=== PATIENT | female | born 1980 | race Caucasian/White ===

== ENCOUNTER 2021-02-06 10:02 | Outpatient (REF) | payer OTHER, SELFPAY ==
[2021-02-06 15:31] LABS: CT PCR NOT DETECTED (Not Detect.); NG PCR NOT DETECTED (Not Detect.)
[2021-02-07 08:04] LABS: HBc Num1 0.21 S/CO (0.00-0.79); HIV AB/AG Nonreactive (Nonreactive); HIV Num 1 0.08 S/CO (0.00-0.99); Hepatitis B Core Antibody Nonreactive (Nonreactive)
[2021-02-07 08:28] LABS: ~HepC Num1 0.23 S/CO (0.00-0.79); ~Hepatitis C Antibody Nonreactive (Nonreactive)
[2021-02-07 08:44] LABS: BV Int Neg Control Negative (Negative); BV Int Pos Control Positive (Positive)
[2021-02-07 08:45] LABS: Syphilis Screen Nonreactive (Nonreactive)
== END 2021-02-06 10:03 | disposition home or self-care (01) ==
LOC: HO.LAB 10:02
PROVIDERS: PCP Internal Medicine; Visit Provider Advanced Practice Midwife
DX: Z01.419 Encounter for gynecological examination (general) (routine) without abnormal findings (principal); N89.8 Other specified noninflammatory disorders of vagina; Z20.2 Contact with and (suspected) exposure to infections with a predominantly sexual mode of transmission
CPT/HCPCS: 36415; 86704; 86780; 86803; 87389; 87480; 87491; 87510; 87591; 87660

== ENCOUNTER 2021-02-26 11:44 | Outpatient (REF) | payer OTHER, SELFPAY ==
[2021-02-27 10:46] LABS: BV Int Neg Control Negative (Negative); BV Int Pos Control Positive (Positive)
== END 2021-02-26 11:45 | disposition home or self-care (01) ==
LOC: HO.LNP 11:44
PROVIDERS: PCP Internal Medicine; Visit Provider Advanced Practice Midwife
DX: N89.8 Other specified noninflammatory disorders of vagina (principal)
CPT/HCPCS: 87480; 87510; 87660; 99212

== ENCOUNTER 2021-03-21 14:38 | Outpatient (REF) | payer OTHER, SELFPAY ==
--- NOTE | ~2021-03-21 | MM_ITS ---
EXAMINATION: MM SCREENING DIGITAL BREAST TOMOSYNTHESIS, BILATERAL CLINICAL INFORMATION: Screening. Asymptomatic. The lifetime risk of breast cancer based on the Tyrer-Cuzick Model is 7.7%. COMPARISON: Mammography: None TECHNIQUE: Digital breast tomosynthesis is performed in both the craniocaudal and mediolateral oblique views along with computer-aided detection (CAD). Synthesized 2D images are generated from the tomosynthesis. Bilateral exaggerated craniocaudal views performed. FINDINGS: The breasts are heterogeneously dense, which may obscure small masses (ACR BI-RADS breast composition Category c). There are no significant masses, abnormal calcifications, or other abnormalities. MM/MM tomosynthesis screening BI IMPRESSION: No specific mammographic evidence to suggest malignancy. ASSESSMENT: BI-RADS 1: Negative RECOMMENDATION: Routine annual mammography screening. This patient's information was entered into a reminder system with a target due date for their next mammogram.
== END 2021-03-21 14:39 | disposition home or self-care (01) ==
LOC: HO.MAMMO 14:38
PROVIDERS: Visit Provider Advanced Practice Midwife
DX: Z12.31 Encounter for screening mammogram for malignant neoplasm of breast (principal)
CPT/HCPCS: 77063; 77067

== ENCOUNTER 2021-03-26 08:21 | Outpatient (REF) | payer OTHER, SELFPAY ==
[2021-03-27 09:42] LABS: BV Int Neg Control Negative (Negative); BV Int Pos Control Positive (Positive)
== END 2021-03-26 08:22 | disposition home or self-care (01) ==
LOC: HO.LAB 08:21
PROVIDERS: PCP Internal Medicine; Visit Provider Advanced Practice Midwife
DX: Z12.4 Encounter for screening for malignant neoplasm of cervix (principal); N89.8 Other specified noninflammatory disorders of vagina; N88.0 Leukoplakia of cervix uteri
CPT/HCPCS: 81003; 87480; 87510; 87660; 99212

== ENCOUNTER 2021-05-11 13:44 | Outpatient (REF) | payer OTHER, SELFPAY ==
[2021-05-12 11:45] LABS: CT PCR NOT DETECTED (Not Detect.); NG PCR NOT DETECTED (Not Detect.)
[2021-05-12 13:37] LABS: BV Int Neg Control Negative (Negative); BV Int Pos Control Positive (Positive)
== END 2021-05-11 13:45 | disposition home or self-care (01) ==
LOC: HO.LAB 13:44
PROVIDERS: PCP Internal Medicine; Visit Provider Advanced Practice Midwife
DX: Z30.46 Encounter for surveillance of implantable subdermal contraceptive (principal); N89.8 Other specified noninflammatory disorders of vagina; A64 Unspecified sexually transmitted disease; Z20.2 Contact with and (suspected) exposure to infections with a predominantly sexual mode of transmission; Z86.19 Personal history of other infectious and parasitic diseases
CPT/HCPCS: 87480; 87491; 87510; 87591; 87660; 99212

== ENCOUNTER → 2021-06-25 14:04 | Outpatient (BNVA) | payer OTHER, SELFPAY | PROVIDERS: PCP Internal Medicine; Visit Provider Advanced Practice Midwife | DX: Z30.46 Encounter for surveillance of implantable subdermal contraceptive (principal) | CPT/HCPCS: 11982 ==

== ENCOUNTER → 2022-02-08 10:33 | Outpatient (BNVA) | payer OTHER, SELFPAY | PROVIDERS: PCP Internal Medicine; Visit Provider Advanced Practice Midwife | DX: N92.6 Irregular menstruation, unspecified (principal) | CPT/HCPCS: 81025; 99212 ==

== ENCOUNTER 2022-02-15 14:05 | Outpatient (REF) | payer OTHER, SELFPAY ==
--- NOTE | ~2022-02-15 | US_ITS ---
EXAMINATION: OBSTETRICAL ULTRASOUND, FIRST TRIMESTER HISTORY: 41-year-old at the 6.4 weeks of gestation Viability LMP: 12/31/2021 COMPARISON: None TECHNIQUE: Real time transabdominal imaging with color and M-mode Doppler. Transvaginal ultrasound was performed using an endovaginal probe. FINDINGS: A single, live IUP CRL of 3.4 mm c/w 6.0wks is noted. Heart Rate: 85 beats per minute. The yolk sac appear within normal limits. Ovaries were difficult to visualize today. No free fluid in the cul-de-sac. GESTATIONAL AGE: 1. GA from LMP: 6.4 wks 2. GA from AUA: 6.0 wks ESTIMATED DATE OF DELIVERY: 1. ANNIE from LMP: 10/07/2022 2. ANNIE from AUA: 10/11/2022 US/US OB <= 14 weeks fetus IMPRESSION: 1. Single live IUP 2. CRL is consistent with 6.0 weeks confirming her LMP based ANNIE of 10/07/2022. 3. The heart rate of 85 bpm is below the lower limit of normal for this GA. However this can be a normal variant. Discussion: A follow-up in the approximately 2 weeks is suggested (not scheduled). Thank you very much for this referral. This note was generated with a voice recognition program. Please excuse any errors which may have been overlooked during my review of this note. Sometimes these errors may affect the content or meaning of a given sentence.
--- NOTE | ~2022-02-15 | US_ITS ---
EXAMINATION: OBSTETRICAL ULTRASOUND, FIRST TRIMESTER HISTORY: 41-year-old at the 6.4 weeks of gestation Viability LMP: 12/31/2021 COMPARISON: None TECHNIQUE: Real time transabdominal imaging with color and M-mode Doppler. Transvaginal ultrasound was performed using an endovaginal probe. FINDINGS: A single, live IUP CRL of 3.4 mm c/w 6.0wks is noted. Heart Rate: 85 beats per minute. The yolk sac appear within normal limits. Ovaries were difficult to visualize today. No free fluid in the cul-de-sac. GESTATIONAL AGE: 1. GA from LMP: 6.4 wks 2. GA from AUA: 6.0 wks ESTIMATED DATE OF DELIVERY: 1. ANNIE from LMP: 10/07/2022 2. ANNIE from AUA: 10/11/2022 US/US OB transvaginal IMPRESSION: 1. Single live IUP 2. CRL is consistent with 6.0 weeks confirming her LMP based ANNIE of 10/07/2022. 3. The heart rate of 85 bpm is below the lower limit of normal for this GA. However this can be a normal variant. Discussion: A follow-up in the approximately 2 weeks is suggested (not scheduled). Thank you very much for this referral. This note was generated with a voice recognition program. Please excuse any errors which may have been overlooked during my review of this note. Sometimes these errors may affect the content or meaning of a given sentence.
== END 2022-02-15 14:06 | disposition home or self-care (01) ==
LOC: HO.US 14:05
PROVIDERS: Visit Provider Advanced Practice Midwife
DX: Z34.91 Encounter for supervision of normal pregnancy, unspecified, first trimester (principal); Z3A.01 Less than 8 weeks gestation of pregnancy
CPT/HCPCS: 76801; 76817

== ENCOUNTER 2022-03-01 10:30 | Outpatient (REF) | payer OTHER, SELFPAY ==
--- NOTE | ~2022-03-01 | US_ITS ---
EXAMINATION: OBSTETRICAL ULTRASOUND, FIRST TRIMESTER HISTORY: 41-year-old at the 8.4 weeks of gestation. Viability AMA LMP: 12/31/2021 COMPARISON: 02/15/2022 TECHNIQUE: Real time transabdominal imaging with color and M-mode Doppler. Transvaginal ultrasound was performed using an endovaginal probe. FINDINGS: A nonviable IUP CRL of 2.8 mm c/w 6.0wks is noted. No heart motion seen Both maternal ovaries are seen and appear normal. No free fluid in the cul-de-sac. GESTATIONAL AGE: 1. GA from LMP: 8.4 wks 2. GA from AUA: 6.0 wks ESTIMATED DATE OF DELIVERY: 1. ANNIE from LMP: 10/07/2022 2. ANNIE from AUA: 10/25/2022 US/US OB <= 14 weeks fetus IMPRESSION: 1. Missed AB at approximately 8 weeks of gestation Thank you very much for this referral. This note was generated with a voice recognition program. Please excuse any errors which may have been overlooked during my review of this note. Sometimes these errors may affect the content or meaning of a given sentence.
--- NOTE | ~2022-03-01 | US_ITS ---
EXAMINATION: OBSTETRICAL ULTRASOUND, FIRST TRIMESTER HISTORY: 41-year-old at the 8.4 weeks of gestation. Viability AMA LMP: 12/31/2021 COMPARISON: 02/15/2022 TECHNIQUE: Real time transabdominal imaging with color and M-mode Doppler. Transvaginal ultrasound was performed using an endovaginal probe. FINDINGS: A nonviable IUP CRL of 2.8 mm c/w 6.0wks is noted. No heart motion seen Both maternal ovaries are seen and appear normal. No free fluid in the cul-de-sac. GESTATIONAL AGE: 1. GA from LMP: 8.4 wks 2. GA from AUA: 6.0 wks ESTIMATED DATE OF DELIVERY: 1. ANNIE from LMP: 10/07/2022 2. ANNIE from AUA: 10/25/2022 US/US OB transvaginal IMPRESSION: 1. Missed AB at approximately 8 weeks of gestation Thank you very much for this referral. This note was generated with a voice recognition program. Please excuse any errors which may have been overlooked during my review of this note. Sometimes these errors may affect the content or meaning of a given sentence.
== END 2022-03-01 10:31 | disposition home or self-care (01) ==
LOC: HO.US 10:30
PROVIDERS: Visit Provider Advanced Practice Midwife
DX: O02.1 Missed abortion (principal)
CPT/HCPCS: 76801; 76817; 99212

== ENCOUNTER 2022-03-04 12:02 | Outpatient (REF) | payer OTHER, SELFPAY ==
[2022-03-04 16:20] LABS: CT PCR NOT DETECTED (Not Detect.); NG PCR NOT DETECTED (Not Detect.)
== END 2022-03-04 12:03 | disposition home or self-care (01) ==
LOC: HO.LAB 12:02
PROVIDERS: PCP Internal Medicine; Visit Provider Obstetrics & Gynecology
DX: O02.1 Missed abortion (principal)
CPT/HCPCS: 87491; 87591; 99212

== ENCOUNTER → 2022-03-19 15:12 | Outpatient (BNVA) | payer OTHER, SELFPAY | PROVIDERS: PCP Internal Medicine; Visit Provider Obstetrics & Gynecology | DX: O02.1 Missed abortion (principal) | CPT/HCPCS: 99212 ==

== ENCOUNTER 2022-04-10 14:36 | Outpatient (REF) | payer OTHER, SELFPAY ==
[2022-04-10 15:25] LABS: HCG Quantitative < 2 mIU/mL
== END 2022-04-10 14:37 | disposition home or self-care (01) ==
LOC: HO.LAB 14:36
PROVIDERS: PCP Internal Medicine; Visit Provider Obstetrics & Gynecology
DX: O02.1 Missed abortion (principal)
CPT/HCPCS: 36415; 84702

== ENCOUNTER → 2022-04-11 15:02 | Outpatient (BNVA) | payer OTHER, SELFPAY | PROVIDERS: PCP Internal Medicine; Visit Provider Obstetrics & Gynecology | DX: O02.1 Missed abortion (principal) | CPT/HCPCS: 99212 ==